=== PATIENT | male | born 1975 ===

== ENCOUNTER 2019-02-28 05:51 | Day surgery (SDC) | payer OTHER ==
[2019-02-28] VITALS (11 sets, daily range): BP systolic 102–128; BP diastolic 63–85
[~2019-02-28] VITALS: Ht 188 cm; Wt 79.4 kg
[2019-02-28] MEDS ORDERED: celeBREX 200mg Cap **SURGERY PATIENTS ONLY ORAL ONE (06:00)
[2019-02-28] MEDS ORDERED: oxyCONTIN 20mg tab ORAL ONE (06:00)
[2019-02-28] MEDS ORDERED: Vancomycin 1gm/D5W 275ml IVPB ONE ×2 (06:00)
[2019-02-28] MEDS ORDERED: ceFAZolin 1gm IVPB IVPB ONE ×2 (06:00)
--- NOTE | 2019-02-28 07:00 | Pre-Procedure Note/Attestation ---
Pre-Procedure Note/Attestation Complete Prior to Procedure Planned Procedure: left Procedure Narrative: ankle arthroscopy, possible synovectomy, possible chondroplasty Indications for Procedure Pre-Operative Diagnosis: left ankle interal derangment Attestation I attest that I discussed the nature of the procedure; its benefits; risks and complications; and alternatives (and the risks and benefits of such alternatives ), prior to the procedure, with the patient (or the patient's legal insurance follow up representative). I attest that, if there was a reasonable possibility of needing a blood transfusion, the patient (or the patient's legal insurance follow up representative) was given the [facility] standardized written summary, pursuant to the [employer]era Bet[employer] Blood Safety Act ([place] Health and Safety Code # 1645, as amended). I attest that I re-evaluated the patient just prior to the surgery and that there has been no change in the patient's H&P, except as documented below: Armaan Peterson MD February 28, 2019 07:00
--- NOTE | 2019-02-28 07:00 | Operative Note - PDOC ---
Operative Note Operative Note Pre-op Diagnosis: left ankle interal derangment Procedure: see op report Post-op Diagnosis: same as pre-op plus Operative Findings: consistent w/pre-op dx studies Anesthesia: general Specimen: none Complications: none Condition: stable Estimated Blood Loss: none Implant(s) used?: No Armaan Peterson MD February 28, 2019 07:00
[2019-02-28] MEDS ORDERED: NKM (07:27)
[2019-02-28] MEDS ORDERED: Lidocaine 1% MPF 10mg/ml 5ml ONE (07:28)
[2019-02-28] MEDS ORDERED: Midazolam 2mg/2ml Inj ONE (08:11)
[2019-02-28] MEDS ORDERED: fentaNYL 100 mcg/2 mL IV ONE (08:11)
[2019-02-28] MEDS ORDERED: Propofol 200mg/20ml IV ONE (08:16)
[2019-02-28] MEDS ORDERED: Ketorolac 30mg Inj ONE ×2 (08:16→10:04)
[2019-02-28] MEDS ORDERED: Vancomycin 1gm vial IVPB ONE (08:51)
[2019-02-28] MEDS ORDERED: NS Irrig 4000ml IRRIG ONE (09:30)
[2019-02-28] MEDS ORDERED: LR 1000ml ONE (09:30)
[2019-02-28] MEDS ORDERED: Kenalog-40 1ml Vial ONE (10:03)
--- NOTE | 2019-02-28 10:05 | Anethesia Preoperative Eval ---
Anesthesia Pre-op PMH/ROS General Date of Evaluation: February 28, 2019 Time of Evaluation: 09:05 Anesthesiologist: Daina ASA Score: ASA 2 Mallampati Score Class I : Soft palate, uvula, fauces, pillars visible Class II: Soft palate, uvula, fauces visible Class III: Soft palate, base of uvula visible Class IV: Only hard plate visible Mallampati Classification: Class II Surgeon: Nicholas Diagnosis: L ankle pain Surgical Procedure: L ankle scope Anesthesia History: none Family History: no anesthesia problems Allergies: Coded Allergies: ALMOND (Verified Allergy, Intermediate, "throat itch", 02/27/19) PISTACHIO NUT (Verified Adverse Reaction, Intermediate, "throat itch", ) Medications: see eMAR Patient NPO?: Yes Past Medical History Cardiovascular: Denies: HTN, CAD, AR, valve dz, arrhythmia, other Pulmonary: Denies: asthma, COPD, MAGALY, other Gastrointestinal/Genitourinary: Reports: GERD; Denies: CRI, ESRD, other Neurologic/Psychiatric: Denies: dementia, CVA, depression/anxiety, TIA, other Endocrine: Denies: DM, hypothyroidism, steroids, other HEENT: Denies: cataract (L), cataract (R), glaucoma, LUMBEE (L), LUMBEE (R), other Hematology/Immune: Denies: anemia, DVT, bleeding disorder, other Musculoskeletal/Integumentary: Denies: OA, RA, DJD, DDD, edema, other PMH Narrative: as above PSxH Narrative: see H&P Anesthesia Pre-op Phys. Exam Physician Exam Last Vital Signs Date Time Temp Pulse Resp B/P (MAP) Pulse Ox O2 Delivery O2 Flow Rate FiO2 02/28/19 07:25 97.3 69 20 102/70 98 Room Air Constitutional: NAD Neurologic: CN 2-12 intact Cardiovascular: RRR, no M/R/G Respiratory: CTA Gastrointestinal: S/NT/ND Airway Exam Mallampati Score: Class II MO: full Neck: flexible ROM: full Teeth: missing, broken Dentures: no upper, no lower Anesthesia Pre-op A/P Labs see chart Studies Pre-op Studies: EKG - NSR Risk Assessment & Plan Assessment: ASA 2 Plan: GA with LMA L popliteal fossa block for postop pain control Status Change Before Surgery: No Pre-Antibiotics Drug: Vanco 1gr. Given Within 1 Hr of Incision: Yes Time Given: 10:05 Uriah Lama MD February 28, 2019 10:05
--- NOTE | 2019-02-28 11:01 | Immediate Post-Op Evaluation ---
Immediate Post-Op Evalulation Immediate Post-Op Evalulation Procedure: L ankle arthroscopy with debridement Date of Evaluation: February 28, 2019 Time of Evaluation: 11:00 IV Fluids: 800 Blood Products: none Estimated Blood Loss: min Urinary Output: none Blood Pressure Systolic: 105 Blood Pressure Diastolic: 69 Pulse Rate: 62 Respiratory Rate: 20 O2 Sat by Pulse Oximetry: 99 Temperature (Fahrenheit): 97.8 Pain Score (1-10): 1 Nausea: No Vomiting: No Complications none Patient Status: reacts, patent, none Hydration Status: adequate Uriah Lama MD February 28, 2019 11:01
--- NOTE | 2019-02-28 14:14 | 48 Hour Post Anesthesia Eval ---
Post Anesthesia Evaluation Procedure: L ankle arthroscopy with debridement Date of Evaluation: February 28, 2019 Time of Evaluation: 14:13 Blood Pressure Systolic: 128 0: 76 Pulse Rate: 78 Respiratory Rate: 20 Temperature (Fahrenheit): 97.6 O2 Sat by Pulse Oximetry: 98 Airway: patent Nausea: No Vomiting: No Pain Intensity: 2 Hydration Status: adequate Cardiopulmonary Status: stable Mental Status/LOC: patient returned to baseline Follow-up Care/Observations: n/a Post-Anesthesia Complications: none Follow-up care needed: ready to discharge Uriah Lama MD February 28, 2019 14:14
--- NOTE | 2019-02-28 17:45 | Operative Note - Dictated ---
DATE OF OPERATION: 02/28/2019 PREOPERATIVE DIAGNOSES: 1. Left ankle chondral damage. 2. Left ankle hypertrophic synovial tissue. POSTOPERATIVE DIAGNOSES: 1. Left ankle chondral damage. 2. Left ankle hypertrophic synovial tissue. PROCEDURE: 1. Left ankle diagnostic arthroscopy. 2. Left ankle complete synovectomy, chondroplasty. SURGEON: Armaan Peterson M.D. ANESTHESIA: General. INDICATION FOR PROCEDURE: The patient is a pleasant gentleman, who has had pain in the left ankle. He had MRI, which showed some acute chondral damage. He has continued anterior ankle pain. Given that he failed conservative treatment, elected to go left ankle arthroscopy, possible synovectomy, chondroplasty. Risks, limitations, expectations, and complication of procedure were discussed in detail. All questions addressed. DESCRIPTION OF PROCEDURE: After informed consent was obtained, the patient was brought to the operating room. The patient was placed under general anesthesia. Left leg was prepped and draped in a sterile manner. Time-out was performed. The ankle was placed under traction. An inferolateral incision was marked out. The skin was incised. Blunt dissection down to the capsule was performed. The camera was then placed into the ankle joint. There was significant scarring in the anterior capsule with significant hypertrophic fat pad synovial tissue. The anterior medial portal was established from inside-out. The shaver was then used to begin the synovectomy. Once the synovectomy was performed, the ankle joint was better visualized. There was a grade 2 chondral damage in the talus. Camera was then positioned in the lateral working portal and the synovectomy extending into the medial gutter was performed. Once the complete excision of the hypertrophic synovial tissue was performed, a systematic tour of the ankle was performed. The lateral or medial gutter was free of any loose bodies. There was a grade 2 chondral damage in talus as well as along the talar dome. There were no intra-articular loose bodies. There was no evidence of bony impingement with dynamic examination under anesthesia. Once that was done, the instruments were removed. Portal sites were closed with 3-0 Monocryl sutures. Steri-Strips and a sterile dressing were applied. The patient was awoken and taken to recovery room with stable vital signs. ESTIMATED BLOOD LOSS: None. COMPLICATIONS: None. SPECIMENS: None. IMPLANTS: None. Armaan Peterson M.D. DR: JORDIN JOB#: [id number] CC:
== END 2019-02-28 13:00 | disposition home or self-care (01) ==
LOC: SUR 05:51
DX: M67.272 Synovial hypertrophy, not elsewhere classified, left ankle and foot (principal); M24.172 Other articular cartilage disorders, left ankle; Z86.14 Personal history of Methicillin resistant Staphylococcus aureus infection; K21.9 Gastro-esophageal reflux disease without esophagitis; Z91.018 Allergy to other foods
CPT/HCPCS: 29895; J0690; J1885; J2250; J2704; J3010; J3301; J3370; 94003; 94150